=== PATIENT | male | born 1945 | race Caucasian/White ===

== ENCOUNTER 2021-08-31 16:09 | Inpatient (IN) | payer MEDICAID, MEDICARE ==
[~2021-08-31] VITALS: Ht 180.3 cm; Wt 137.0 kg
[2021-08-31 17:49] LABS: BASO % 0.2 % (0.0-1.0); EOS % 0.1 % (0.0-3.0); HEMATOCRIT 43.9 % (42.0-52.0); HEMOGLOBIN 13.9 g/dl (13.5-17.5); LYMPH # 0.6 10^3/uL (1.5-5.0); MEAN CORPUSCULAR HEMOGLOBIN 29.5 pg (27.0-33.0); MEAN CORPUSCULAR HGB CONC 31.7 g/dl (32.0-36.5); MEAN CORPUSCULAR VOLUME 93.2 fl (80.0-96.0); MONO # 0.9 10^3/uL (0.0-0.8); MONO % 10.1 % (2.0-8.0); NEUTROPHILS # 6.9 10^3/uL (1.5-8.5); NEUTROPHILS % 82.2 % (36.0-66.0); PLATELET COUNT, AUTOMATED 249 10^3/uL (150-450); RED BLOOD COUNT 4.71 10^6/uL (4.30-6.10); WHITE BLOOD COUNT 8.4 10^3/uL (4.0-10.0)
[2021-08-31 17:56] LABS: INR 1.27; PARTIAL THROMBOPLASTIN TIME 40.4 SECONDS (25.9-37.0); PROTHROMBIN TIME 16.3 SECONDS (12.7-14.5)
[2021-08-31] MEDS: METOPROLOL 5 MG/5 ML VIAL IV SCH ×3 (18:10→18:20)
[2021-08-31 18:19] LABS: ALBUMIN 3.2 GM/DL (3.2-5.2); ALT/SGPT 36 U/L (12-78); BILIRUBIN,DIRECT 0.8 MG/DL (0.0-0.2); BILIRUBIN,TOTAL 1.6 MG/DL (0.2-1.0); BLOOD UREA NITROGEN 10 MG/DL (7-18); CALCIUM LEVEL 8.5 MG/DL (8.8-10.2); CARBON DIOXIDE LEVEL 29 MEQ/L (21-32); CHLORIDE LEVEL 96 MEQ/L (98-107); CREATININE FOR GFR 0.57 MG/DL (0.70-1.30); GLOMERULAR FILTRATION RATE > 60.0 (>42); GLUCOSE, FASTING 111 MG/DL (70-100); NT-PRO BNP 2627 PG/ML (<125); POTASSIUM SERUM 4.3 MEQ/L (3.5-5.1); SODIUM LEVEL 131 MEQ/L (136-145); TOTAL PROTEIN 6.7 GM/DL (6.4-8.2)
[2021-08-31] MEDS ORDERED: FUROSEMIDE 40MG/4ML VIAL (J1940) IV ONE (18:50)
[2021-08-31] MEDS ORDERED: HOME MED LIST COMPLETE! XX SCH (19:10)
[2021-08-31] MEDS ORDERED: MOM 30ML SUSPENSION UDC PO PRN (19:25)
[2021-08-31] MEDS ORDERED: MAALOX 30 ML SUSP *UDC PO PRN (19:25)
[2021-08-31 19:54] LABS: CHOLESTEROL LEVEL 119 MG/DL (<200); CHOLESTEROL RISK RATIO 3.305 (<5); HDL CHOLESTEROL 36 MG/DL (>40); LDL CHOLESTEROL 70 MG/DL (<100); NON-HDL-C 83 MG/DL; TRIGLYCERIDES LEVEL 66 MG/DL (<150)
[2021-08-31] MEDS ORDERED: FUROSEMIDE 40MG/4ML VIAL (J1940) IV SCH (20:00)
[2021-08-31 20:10] LABS: HEMOGLOBIN A1c 5.2 %
[2021-08-31] MEDS ORDERED: APIXABAN 5 MG TAB (ELIQUIS) PO SCH (21:00)
[2021-08-31 23:00] VITALS: BP 142/90; O2SAT 95
[2021-08-31 23:46] LABS: CK-MB VALUE MASS 6.9 NG/ML (<3.6); MB/CK RELATIVE INDEX 4.06 (< OR =4)
[2021-08-31] MEDS: DOCUSATE SODIUM 100MG CAPSULE PO SCH (23:52)
[2021-09-01] VITALS (24 sets, daily range): BP systolic 114–152; BP diastolic 79–98; O2SAT 89–95
[2021-09-01] MEDS: METOPROLOL TART 25 MG TABLET PO SCH ×5 (00:19→23:46)
[2021-09-01] MEDS: ENOXAPARIN 150MG/ML SYRINGE (J1650 PER 10MG) SC SCH ×3 (00:19→20:17)
[2021-09-01] MEDS: NYSTATIN 100,000 UNITS/GM TOPICAL PWD 15 GM TOP SCH ×3 (00:19→20:17)
[2021-09-01] MEDS ORDERED: FUROSEMIDE 40MG/4ML VIAL (J1940) IV SCH (02:00)
[2021-09-01 04:18] LABS: HEMATOCRIT 42.5 % (42.0-52.0); HEMOGLOBIN 13.3 g/dl (13.5-17.5); MEAN CORPUSCULAR HEMOGLOBIN 29.5 pg (27.0-33.0); MEAN CORPUSCULAR HGB CONC 31.3 g/dl (32.0-36.5); MEAN CORPUSCULAR VOLUME 94.2 fl (80.0-96.0); PLATELET COUNT, AUTOMATED 277 10^3/uL (150-450); RED BLOOD COUNT 4.51 10^6/uL (4.30-6.10); WHITE BLOOD COUNT 8.9 10^3/uL (4.0-10.0)
[2021-09-01 04:47] LABS: CK-MB VALUE MASS 5.3 NG/ML (<3.6); MB/CK RELATIVE INDEX 3.19 (< OR =4)
[2021-09-01 05:03] LABS: BLOOD UREA NITROGEN 10 MG/DL (7-18); CARBON DIOXIDE LEVEL 32 MEQ/L (21-32); CHLORIDE LEVEL 95 MEQ/L (98-107); CREATININE FOR GFR 0.61 MG/DL (0.70-1.30); GLOMERULAR FILTRATION RATE > 60.0 (>42); GLUCOSE, FASTING 110 MG/DL (70-100); POTASSIUM SERUM 3.6 MEQ/L (3.5-5.1); SODIUM LEVEL 134 MEQ/L (136-145)
[2021-09-01 05:04] LABS: ALBUMIN 3.1 GM/DL (3.2-5.2); ALT/SGPT 37 U/L (12-78); BILIRUBIN,TOTAL 1.7 MG/DL (0.2-1.0); CALCIUM LEVEL 8.3 MG/DL (8.8-10.2); TOTAL PROTEIN 6.9 GM/DL (6.4-8.2)
[2021-09-01] MEDS: DOCUSATE SODIUM 100MG CAPSULE PO SCH ×2 (08:08→20:18)
[2021-09-01] MEDS: FUROSEMIDE 40MG/4ML VIAL (J1940) IV SCH ×2 (08:09→20:22)
[2021-09-01 12:01] LABS: CK-MB VALUE MASS 5.9 NG/ML (<3.6); MB/CK RELATIVE INDEX 3.86 (< OR =4)
[2021-09-01 18:27] LABS: BLOOD UREA NITROGEN 12 MG/DL (7-18); CALCIUM LEVEL 8.3 MG/DL (8.8-10.2); CARBON DIOXIDE LEVEL 30 MEQ/L (21-32); CHLORIDE LEVEL 94 MEQ/L (98-107); CREATININE FOR GFR 0.64 MG/DL (0.70-1.30); GLOMERULAR FILTRATION RATE > 60.0 (>42); GLUCOSE, FASTING 115 MG/DL (70-100); POTASSIUM SERUM 3.9 MEQ/L (3.5-5.1); SODIUM LEVEL 131 MEQ/L (136-145)
[2021-09-02] VITALS (15 sets, daily range): BP systolic 109–148; BP diastolic 71–92; O2SAT 91–97
[2021-09-02] MEDS: METOPROLOL TART 25 MG TABLET PO SCH ×4 (05:02→23:15)
[2021-09-02 05:25] LABS: HEMATOCRIT 41.2 % (42.0-52.0); HEMOGLOBIN 13.2 g/dl (13.5-17.5); MEAN CORPUSCULAR HEMOGLOBIN 29.9 pg (27.0-33.0); MEAN CORPUSCULAR VOLUME 93.2 fl (80.0-96.0); PLATELET COUNT, AUTOMATED 240 10^3/uL (150-450); RED BLOOD COUNT 4.42 10^6/uL (4.30-6.10); WHITE BLOOD COUNT 7.2 10^3/uL (4.0-10.0)
[2021-09-02 05:42] LABS: ALBUMIN 2.8 GM/DL (3.2-5.2); ALT/SGPT 34 U/L (12-78); BILIRUBIN,TOTAL 1.5 MG/DL (0.2-1.0); BLOOD UREA NITROGEN 11 MG/DL (7-18); CALCIUM LEVEL 7.6 MG/DL (8.8-10.2); CARBON DIOXIDE LEVEL 31 MEQ/L (21-32); CHLORIDE LEVEL 95 MEQ/L (98-107); CREATININE FOR GFR 0.47 MG/DL (0.70-1.30); GLOMERULAR FILTRATION RATE > 60.0 (>42); GLUCOSE, FASTING 130 MG/DL (70-100); POTASSIUM SERUM 3.2 MEQ/L (3.5-5.1); SODIUM LEVEL 134 MEQ/L (136-145); TOTAL PROTEIN 6.6 GM/DL (6.4-8.2)
[2021-09-02] MEDS ORDERED: POTASSIUM CHLORIDE 10MEQ SR TABLET PO ONE ×2 (06:00→12:00)
[2021-09-02] MEDS: FUROSEMIDE 40MG/4ML VIAL (J1940) IV SCH ×2 (08:11→20:09)
[2021-09-02] MEDS: DOCUSATE SODIUM 100MG CAPSULE PO SCH ×2 (08:11→20:09)
[2021-09-02] MEDS: ENOXAPARIN 150MG/ML SYRINGE (J1650 PER 10MG) SC SCH (08:11)
[2021-09-02] MEDS: NYSTATIN 100,000 UNITS/GM TOPICAL PWD 15 GM TOP SCH ×2 (08:12→20:09)
[2021-09-02] MEDS: APIXABAN 5 MG TAB (ELIQUIS) PO SCH (20:09)
[2021-09-03] VITALS (26 sets, daily range): BP systolic 116–154; BP diastolic 70–93; O2SAT 91–95
[2021-09-03] MEDS: METOPROLOL TART 25 MG TABLET PO SCH ×2 (05:04→20:09)
[2021-09-03 05:11] LABS: HEMATOCRIT 43.3 % (42.0-52.0); HEMOGLOBIN 13.9 g/dl (13.5-17.5); MEAN CORPUSCULAR HEMOGLOBIN 29.5 pg (27.0-33.0); MEAN CORPUSCULAR HGB CONC 32.1 g/dl (32.0-36.5); MEAN CORPUSCULAR VOLUME 91.9 fl (80.0-96.0); PLATELET COUNT, AUTOMATED 264 10^3/uL (150-450); RED BLOOD COUNT 4.71 10^6/uL (4.30-6.10); WHITE BLOOD COUNT 9.8 10^3/uL (4.0-10.0)
[2021-09-03 05:41] LABS: ALT/SGPT 34 U/L (12-78); BILIRUBIN,TOTAL 2.2 MG/DL (0.2-1.0); BLOOD UREA NITROGEN 11 MG/DL (7-18); CARBON DIOXIDE LEVEL 29 MEQ/L (21-32); CHLORIDE LEVEL 94 MEQ/L (98-107); CREATININE FOR GFR 0.48 MG/DL (0.70-1.30); GLOMERULAR FILTRATION RATE > 60.0 (>42); GLUCOSE, FASTING 104 MG/DL (70-100); MAGNESIUM LEVEL 1.5 MG/DL (1.8-2.4); POTASSIUM SERUM 3.8 MEQ/L (3.5-5.1); SODIUM LEVEL 132 MEQ/L (136-145)
[2021-09-03] MEDS ORDERED: MAG SULF 1GM/100ML (MAG RUN) 1 GM in IV 1 EA IV ONE (07:00)
[2021-09-03] MEDS: FUROSEMIDE 40MG/4ML VIAL (J1940) IV SCH ×2 (09:47→20:08)
[2021-09-03] MEDS: ACETAMINOPHEN TAB 650MG DOSE (2X325MG) PO PRN (09:48)
[2021-09-03] MEDS: APIXABAN 5 MG TAB (ELIQUIS) PO SCH ×2 (09:48→20:09)
[2021-09-03] MEDS: DOCUSATE SODIUM 100MG CAPSULE PO SCH ×2 (09:48→20:09)
[2021-09-03] MEDS: POTASSIUM CHLORIDE 10MEQ SR TABLET PO SCH (09:49)
[2021-09-03] MEDS: NYSTATIN 100,000 UNITS/GM TOPICAL PWD 15 GM TOP SCH ×2 (10:55→20:09)
[2021-09-03] MEDS ORDERED: METOPROLOL TART 25 MG TABLET PO ONE (14:00)
[2021-09-04] VITALS (15 sets, daily range): BP systolic 115–138; BP diastolic 63–82; O2SAT 91–98
[2021-09-04 04:54] LABS: HEMATOCRIT 40.9 % (42.0-52.0); MEAN CORPUSCULAR HEMOGLOBIN 29.3 pg (27.0-33.0); MEAN CORPUSCULAR HGB CONC 31.8 g/dl (32.0-36.5); MEAN CORPUSCULAR VOLUME 92.1 fl (80.0-96.0); PLATELET COUNT, AUTOMATED 241 10^3/uL (150-450); RED BLOOD COUNT 4.44 10^6/uL (4.30-6.10); WHITE BLOOD COUNT 9.6 10^3/uL (4.0-10.0)
[2021-09-04 05:14] LABS: ALBUMIN 2.8 GM/DL (3.2-5.2); ALT/SGPT 31 U/L (12-78); BILIRUBIN,TOTAL 2.1 MG/DL (0.2-1.0); BLOOD UREA NITROGEN 13 MG/DL (7-18); CALCIUM LEVEL 7.9 MG/DL (8.8-10.2); CARBON DIOXIDE LEVEL 34 MEQ/L (21-32); CHLORIDE LEVEL 92 MEQ/L (98-107); CREATININE FOR GFR 0.46 MG/DL (0.70-1.30); GLOMERULAR FILTRATION RATE > 60.0 (>42); GLUCOSE, FASTING 104 MG/DL (70-100); MAGNESIUM LEVEL 1.7 MG/DL (1.8-2.4); POTASSIUM SERUM 3.6 MEQ/L (3.5-5.1); SODIUM LEVEL 133 MEQ/L (136-145); TOTAL PROTEIN 6.9 GM/DL (6.4-8.2)
[2021-09-04] MEDS ORDERED: MAG SULF 1GM/100ML (MAG RUN) 1 GM in IV 1 EA IV ONE (08:00)
[2021-09-04] MEDS: NYSTATIN 100,000 UNITS/GM TOPICAL PWD 15 GM TOP SCH ×2 (10:08→20:29)
[2021-09-04] MEDS: APIXABAN 5 MG TAB (ELIQUIS) PO SCH ×2 (10:10→20:30)
[2021-09-04] MEDS: POTASSIUM CHLORIDE 10MEQ SR TABLET PO SCH (10:10)
[2021-09-04] MEDS: METOPROLOL TART 25 MG TABLET PO SCH ×2 (10:11→20:31)
[2021-09-04] MEDS: DOCUSATE SODIUM 100MG CAPSULE PO SCH ×2 (10:11→20:30)
[2021-09-04] MEDS ORDERED: metOLazone 5 MG TAB PO ONE (10:30)
[2021-09-04] MEDS: FUROSEMIDE injection 250 MG in D5W 225 ML IV SCH (11:29)
[2021-09-05] VITALS (7 sets, daily range): BP systolic 101–128; BP diastolic 59–92
[2021-09-05 05:01] LABS: HEMATOCRIT 42.2 % (42.0-52.0); HEMOGLOBIN 13.9 g/dl (13.5-17.5); MEAN CORPUSCULAR HEMOGLOBIN 29.6 pg (27.0-33.0); MEAN CORPUSCULAR HGB CONC 32.9 g/dl (32.0-36.5); PLATELET COUNT, AUTOMATED 248 10^3/uL (150-450); RED BLOOD COUNT 4.69 10^6/uL (4.30-6.10); WHITE BLOOD COUNT 12.6 10^3/uL (4.0-10.0)
[2021-09-05 05:34] LABS: ALBUMIN 2.9 GM/DL (3.2-5.2); ALT/SGPT 30 U/L (12-78); BILIRUBIN,TOTAL 2.1 MG/DL (0.2-1.0); BLOOD UREA NITROGEN 11 MG/DL (7-18); CALCIUM LEVEL 8.1 MG/DL (8.8-10.2); CARBON DIOXIDE LEVEL 38 MEQ/L (21-32); CHLORIDE LEVEL 82 MEQ/L (98-107); CREATININE FOR GFR 0.52 MG/DL (0.70-1.30); GLOMERULAR FILTRATION RATE > 60.0 (>42); GLUCOSE, FASTING 139 MG/DL (70-100); MAGNESIUM LEVEL 1.7 MG/DL (1.8-2.4); POTASSIUM SERUM 3.1 MEQ/L (3.5-5.1); SODIUM LEVEL 130 MEQ/L (136-145); TOTAL PROTEIN 6.8 GM/DL (6.4-8.2)
[2021-09-05] MEDS ORDERED: MAG SULF 1GM/100ML (MAG RUN) 1 GM in IV 1 EA IV ONE (08:00)
[2021-09-05] MEDS: DIGOXIN 0.125 MG TAB PO SCH (09:10)
[2021-09-05] MEDS: ACETAMINOPHEN 500 MG TAB PO SCH ×4 (09:10→19:58)
[2021-09-05] MEDS: APIXABAN 5 MG TAB (ELIQUIS) PO SCH ×2 (09:10→19:58)
[2021-09-05] MEDS: DOCUSATE SODIUM 100MG CAPSULE PO SCH ×2 (09:10→19:58)
[2021-09-05] MEDS: POTASSIUM CHLORIDE 10MEQ SR TABLET PO SCH ×3 (09:11→19:58)
[2021-09-05] MEDS: MIDODRINE 5 MG TAB PO SCH ×3 (09:11→16:00)
[2021-09-05] MEDS: NYSTATIN 100,000 UNITS/GM TOPICAL PWD 15 GM TOP SCH ×2 (09:12→19:59)
[2021-09-05] MEDS: MAGNESIUM OXIDE 400MG TAB (MAG-OX) PO SCH ×2 (09:12→19:57)
[2021-09-05] MEDS: FUROSEMIDE injection 250 MG in D5W 225 ML IV SCH ×2 (11:00→13:17)
[2021-09-06 06:00] VITALS: BP 140/69
[2021-09-06 06:50] LABS: HEMATOCRIT 40.3 % (42.0-52.0); HEMOGLOBIN 13.4 g/dl (13.5-17.5); MEAN CORPUSCULAR HEMOGLOBIN 29.3 pg (27.0-33.0); MEAN CORPUSCULAR HGB CONC 33.3 g/dl (32.0-36.5); MEAN CORPUSCULAR VOLUME 88.2 fl (80.0-96.0); PLATELET COUNT, AUTOMATED 268 10^3/uL (150-450); RED BLOOD COUNT 4.57 10^6/uL (4.30-6.10); WHITE BLOOD COUNT 9.5 10^3/uL (4.0-10.0)
[2021-09-06 07:26] LABS: ALBUMIN 2.6 GM/DL (3.2-5.2); ALT/SGPT 28 U/L (12-78); BILIRUBIN,TOTAL 2.4 MG/DL (0.2-1.0); BLOOD UREA NITROGEN 10 MG/DL (7-18); CALCIUM LEVEL 8.2 MG/DL (8.8-10.2); CARBON DIOXIDE LEVEL 38 MEQ/L (21-32); CHLORIDE LEVEL 81 MEQ/L (98-107); CREATININE FOR GFR 0.44 MG/DL (0.70-1.30); DIGOXIN LEVEL 0.2 NG/ML (0.5-2.0); GLOMERULAR FILTRATION RATE > 60.0 (>42); GLUCOSE, FASTING 106 MG/DL (70-100); MAGNESIUM LEVEL 1.9 MG/DL (1.8-2.4); SODIUM LEVEL 127 MEQ/L (136-145); TOTAL PROTEIN 6.7 GM/DL (6.4-8.2)
[2021-09-06] MEDS: MIDODRINE 5 MG TAB PO SCH ×2 (08:00→12:00)
[2021-09-06] MEDS: ACETAMINOPHEN 500 MG TAB PO SCH ×3 (08:36→20:11)
[2021-09-06] MEDS: MAGNESIUM OXIDE 400MG TAB (MAG-OX) PO SCH ×2 (08:37→20:11)
[2021-09-06] MEDS: APIXABAN 5 MG TAB (ELIQUIS) PO SCH ×2 (08:37→20:10)
[2021-09-06] MEDS: POTASSIUM CHLORIDE 10MEQ SR TABLET PO SCH ×4 (08:37→18:20)
[2021-09-06] MEDS: DOCUSATE SODIUM 100MG CAPSULE PO SCH ×2 (08:37→20:11)
[2021-09-06] MEDS: DIGOXIN 0.125 MG TAB PO SCH (08:43)
[2021-09-06] MEDS: NYSTATIN 100,000 UNITS/GM TOPICAL PWD 15 GM TOP SCH ×2 (08:46→20:11)
[2021-09-06] MEDS ORDERED: MAG SULF 1GM/100ML (MAG RUN) 1 GM in IV 1 EA IV ONE (09:00)
[2021-09-06] MEDS ORDERED: FUROSEMIDE 40MG/4ML VIAL (J1940) IV SCH (10:00)
[2021-09-06] MEDS: KCL 10MEQ/100ML SWI (KRUN) 10 MEQ in IV 1 EA IV SCH ×3 (12:31→18:14)
[2021-09-06 13:16] LABS: BLOOD UREA NITROGEN 11 MG/DL (7-18); CALCIUM LEVEL 8.6 MG/DL (8.8-10.2); CARBON DIOXIDE LEVEL 39 MEQ/L (21-32); CHLORIDE LEVEL 80 MEQ/L (98-107); GLOMERULAR FILTRATION RATE > 60.0 (>42); GLUCOSE, FASTING 126 MG/DL (70-100); MAGNESIUM LEVEL 2.2 MG/DL (1.8-2.4); POTASSIUM SERUM 3.3 MEQ/L (3.5-5.1); SODIUM LEVEL 125 MEQ/L (136-145)
[2021-09-06 14:00] VITALS: BP 138/86
[2021-09-06] MEDS ORDERED: CARVedilol 3.125 MG TAB PO ONE (14:15)
[2021-09-06] MEDS ORDERED: TOLVAPTAN 7.5 MG HALF-TAB PO ONE (16:00)
[2021-09-06 16:03] LABS: BLOOD UREA NITROGEN 12 MG/DL (7-18); CALCIUM LEVEL 8.3 MG/DL (8.8-10.2); CARBON DIOXIDE LEVEL 36 MEQ/L (21-32); CHLORIDE LEVEL 82 MEQ/L (98-107); CREATININE FOR GFR 0.49 MG/DL (0.70-1.30); GLOMERULAR FILTRATION RATE > 60.0 (>42); GLUCOSE, FASTING 162 MG/DL (70-100); MAGNESIUM LEVEL 1.9 MG/DL (1.8-2.4); POTASSIUM SERUM 3.5 MEQ/L (3.5-5.1); SODIUM LEVEL 124 MEQ/L (136-145)
[2021-09-06] MEDS ORDERED: KCL 10MEQ/100ML SWI (KRUN) 10 MEQ in IV 1 EA IV SCH (17:25)
[2021-09-06 18:51] LABS: BLOOD UREA NITROGEN 11 MG/DL (7-18); CALCIUM LEVEL 8.5 MG/DL (8.8-10.2); CARBON DIOXIDE LEVEL 35 MEQ/L (21-32); CHLORIDE LEVEL 82 MEQ/L (98-107); CREATININE FOR GFR 0.45 MG/DL (0.70-1.30); GLOMERULAR FILTRATION RATE > 60.0 (>42); GLUCOSE, FASTING 106 MG/DL (70-100); POTASSIUM SERUM 4.1 MEQ/L (3.5-5.1); SODIUM LEVEL 124 MEQ/L (136-145)
[2021-09-06 20:12] VITALS: BP 126/80
[2021-09-06] MEDS: CARVedilol 3.125 MG TAB PO SCH (20:12)
[2021-09-07 06:07] VITALS: BP 135/83
[2021-09-07 06:41] LABS: HEMATOCRIT 42.5 % (42.0-52.0); HEMOGLOBIN 13.6 g/dl (13.5-17.5); MEAN CORPUSCULAR HEMOGLOBIN 29.1 pg (27.0-33.0); MEAN CORPUSCULAR VOLUME 90.8 fl (80.0-96.0); PLATELET COUNT, AUTOMATED 280 10^3/uL (150-450); RED BLOOD COUNT 4.68 10^6/uL (4.30-6.10); WHITE BLOOD COUNT 9.2 10^3/uL (4.0-10.0)
[2021-09-07 07:11] LABS: ALBUMIN 2.6 GM/DL (3.2-5.2); ALT/SGPT 30 U/L (12-78); BILIRUBIN,TOTAL 2.1 MG/DL (0.2-1.0); BLOOD UREA NITROGEN 11 MG/DL (7-18); CALCIUM LEVEL 8.3 MG/DL (8.8-10.2); CARBON DIOXIDE LEVEL 33 MEQ/L (21-32); CHLORIDE LEVEL 92 MEQ/L (98-107); CREATININE FOR GFR 0.48 MG/DL (0.70-1.30); GLOMERULAR FILTRATION RATE > 60.0 (>42); GLUCOSE, FASTING 99 MG/DL (70-100); MAGNESIUM LEVEL 1.9 MG/DL (1.8-2.4); POTASSIUM SERUM 4.1 MEQ/L (3.5-5.1); SODIUM LEVEL 131 MEQ/L (136-145); TOTAL PROTEIN 6.4 GM/DL (6.4-8.2)
[2021-09-07 07:15] LABS: BLOOD UREA NITROGEN 12 MG/DL (7-18); CALCIUM LEVEL 8.2 MG/DL (8.8-10.2); CARBON DIOXIDE LEVEL 33 MEQ/L (21-32); CHLORIDE LEVEL 93 MEQ/L (98-107); CREATININE FOR GFR 0.44 MG/DL (0.70-1.30); GLOMERULAR FILTRATION RATE > 60.0 (>42); GLUCOSE, FASTING 100 MG/DL (70-100); SODIUM LEVEL 131 MEQ/L (136-145)
[2021-09-07] MEDS: CARVedilol 3.125 MG TAB PO SCH ×2 (08:07→22:03)
[2021-09-07] MEDS: APIXABAN 5 MG TAB (ELIQUIS) PO SCH ×2 (08:07→22:02)
[2021-09-07] MEDS: DOCUSATE SODIUM 100MG CAPSULE PO SCH ×2 (08:07→22:03)
[2021-09-07] MEDS: ACETAMINOPHEN 500 MG TAB PO SCH ×3 (08:07→22:03)
[2021-09-07] MEDS: MAGNESIUM OXIDE 400MG TAB (MAG-OX) PO SCH ×2 (08:07→22:02)
[2021-09-07] MEDS: NYSTATIN 100,000 UNITS/GM TOPICAL PWD 15 GM TOP SCH ×2 (08:08→22:04)
[2021-09-07] MEDS ORDERED: metOLazone 5 MG TAB PO ONE (09:40)
[2021-09-07] MEDS: OLOPATADINE 0.1% OPHTH SOL 5ML(PATANOL) OU SCH ×2 (10:46→17:33)
[2021-09-07] MEDS: POLYVINYL ALCOHOL OPHTH SOLN 15 ML(LIQUITEARS) OU SCH ×4 (10:46→22:04)
[2021-09-07] MEDS: BUMETANIDE 1 MG/4 ML INJ (S0171) IV SCH ×2 (11:37→22:04)
[2021-09-07] MEDS ORDERED: CALCIUM GLUCONATE 1,000 MG in D5W MINI-BAG PLUS 100 ML IV ONE (12:00)
[2021-09-07 14:00] VITALS: BP 124/77
[2021-09-07 14:40] LABS: BLOOD UREA NITROGEN 14 MG/DL (7-18); CALCIUM LEVEL 8.7 MG/DL (8.8-10.2); CARBON DIOXIDE LEVEL 38 MEQ/L (21-32); CHLORIDE LEVEL 89 MEQ/L (98-107); CREATININE FOR GFR 0.56 MG/DL (0.70-1.30); GLOMERULAR FILTRATION RATE > 60.0 (>42); GLUCOSE, FASTING 111 MG/DL (70-100); MAGNESIUM LEVEL 2.2 MG/DL (1.8-2.4); POTASSIUM SERUM 3.3 MEQ/L (3.5-5.1); SODIUM LEVEL 131 MEQ/L (136-145)
[2021-09-07 21:52] LABS: BLOOD UREA NITROGEN 15 MG/DL (7-18); CALCIUM LEVEL 8.3 MG/DL (8.8-10.2); CARBON DIOXIDE LEVEL 35 MEQ/L (21-32); CHLORIDE LEVEL 89 MEQ/L (98-107); CREATININE FOR GFR 0.52 MG/DL (0.70-1.30); GLOMERULAR FILTRATION RATE > 60.0 (>42); GLUCOSE, FASTING 173 MG/DL (70-100); MAGNESIUM LEVEL 1.9 MG/DL (1.8-2.4); POTASSIUM SERUM 3.5 MEQ/L (3.5-5.1); SODIUM LEVEL 132 MEQ/L (136-145)
[2021-09-07 22:00] VITALS: BP 125/76
[2021-09-07 22:03] VITALS: BP 125/76
[2021-09-08 06:00] VITALS: BP 128/74
[2021-09-08] MEDS ORDERED: metOLazone 5 MG TAB PO ONE (08:30)
[2021-09-08] MEDS ORDERED: BUMETANIDE 1 MG TAB PO SCH (09:00)
[2021-09-08] MEDS ORDERED: MAG SULF 1GM/100ML (MAG RUN) 1 GM in IV 1 EA IV ONE ×2 (09:00→11:00)
[2021-09-08] MEDS: MAGNESIUM OXIDE 400MG TAB (MAG-OX) PO SCH ×2 (09:04→20:35)
[2021-09-08] MEDS: ACETAMINOPHEN 500 MG TAB PO SCH ×4 (09:04→20:35)
[2021-09-08] MEDS: APIXABAN 5 MG TAB (ELIQUIS) PO SCH ×2 (09:04→20:35)
[2021-09-08] MEDS: DOCUSATE SODIUM 100MG CAPSULE PO SCH ×2 (09:05→20:35)
[2021-09-08] MEDS: OLOPATADINE 0.1% OPHTH SOL 5ML(PATANOL) OU SCH ×2 (09:05→16:56)
[2021-09-08] MEDS: POLYVINYL ALCOHOL OPHTH SOLN 15 ML(LIQUITEARS) OU SCH ×4 (09:05→20:36)
[2021-09-08] MEDS: NYSTATIN 100,000 UNITS/GM TOPICAL PWD 15 GM TOP SCH ×2 (09:05→20:36)
[2021-09-08 10:08] LABS: BLOOD UREA NITROGEN 16 MG/DL (7-18); CALCIUM LEVEL 8.6 MG/DL (8.8-10.2); CARBON DIOXIDE LEVEL 37 MEQ/L (21-32); CHLORIDE LEVEL 84 MEQ/L (98-107); CREATININE FOR GFR 0.55 MG/DL (0.70-1.30); GLOMERULAR FILTRATION RATE > 60.0 (>42); GLUCOSE, FASTING 146 MG/DL (70-100); MAGNESIUM LEVEL 1.9 MG/DL (1.8-2.4); POTASSIUM SERUM 2.6 MEQ/L (3.5-5.1); SODIUM LEVEL 130 MEQ/L (136-145)
[2021-09-08] MEDS: POTASSIUM CHLORIDE 10MEQ SR TABLET PO SCH ×3 (10:53→15:03)
[2021-09-08 14:00] VITALS: BP 128/92
[2021-09-08 20:38] VITALS: BP 117/76
[2021-09-09 06:04] VITALS: BP 141/77
[2021-09-09 09:02] LABS: BLOOD UREA NITROGEN 20 MG/DL (7-18); CALCIUM LEVEL 8.5 MG/DL (8.8-10.2); CARBON DIOXIDE LEVEL 37 MEQ/L (21-32); CHLORIDE LEVEL 84 MEQ/L (98-107); CREATININE FOR GFR 0.63 MG/DL (0.70-1.30); GLOMERULAR FILTRATION RATE > 60.0 (>42); GLUCOSE, FASTING 145 MG/DL (70-100); MAGNESIUM LEVEL 2.1 MG/DL (1.8-2.4); POTASSIUM SERUM 3.3 MEQ/L (3.5-5.1); SODIUM LEVEL 130 MEQ/L (136-145)
[2021-09-09] MEDS: APIXABAN 5 MG TAB (ELIQUIS) PO SCH ×2 (09:12→20:04)
[2021-09-09] MEDS: MAGNESIUM OXIDE 400MG TAB (MAG-OX) PO SCH ×2 (09:12→20:04)
[2021-09-09] MEDS: ACETAMINOPHEN 500 MG TAB PO SCH ×3 (09:13→20:05)
[2021-09-09] MEDS: NYSTATIN 100,000 UNITS/GM TOPICAL PWD 15 GM TOP SCH ×2 (09:14→20:05)
[2021-09-09] MEDS: POLYVINYL ALCOHOL OPHTH SOLN 15 ML(LIQUITEARS) OU SCH ×4 (09:14→20:05)
[2021-09-09] MEDS: FUROSEMIDE 20 MG TAB PO SCH (09:14)
[2021-09-09] MEDS: SPIRONOLACTONE 25 MG TAB PO SCH (09:14)
[2021-09-09] MEDS: DOCUSATE SODIUM 100MG CAPSULE PO SCH ×2 (09:14→20:04)
[2021-09-09] MEDS: OLOPATADINE 0.1% OPHTH SOL 5ML(PATANOL) OU SCH ×2 (09:14→17:18)
[2021-09-09] MEDS ORDERED: TOLVAPTAN 7.5 MG HALF-TAB PO ONE (10:00)
[2021-09-09 14:00] VITALS: BP 140/77
[2021-09-09] MEDS: OMEPRAZOLE 20MG CAP PO SCH (17:18)
[2021-09-09] MEDS: SUCRALFATE 1 GM TAB PO SCH (17:18)
[2021-09-09 17:57] LABS: HEMATOCRIT 45.7 % (42.0-52.0); HEMOGLOBIN 15.1 g/dl (13.5-17.5)
[2021-09-10 06:00] VITALS: BP 127/80
[2021-09-10 06:58] LABS: BLOOD UREA NITROGEN 20 MG/DL (7-18); CALCIUM LEVEL 8.6 MG/DL (8.8-10.2); CARBON DIOXIDE LEVEL 36 MEQ/L (21-32); CHLORIDE LEVEL 87 MEQ/L (98-107); CREATININE FOR GFR 0.55 MG/DL (0.70-1.30); GLOMERULAR FILTRATION RATE > 60.0 (>42); GLUCOSE, FASTING 97 MG/DL (70-100); MAGNESIUM LEVEL 2.1 MG/DL (1.8-2.4); SODIUM LEVEL 130 MEQ/L (136-145)
[2021-09-10] MEDS: SUCRALFATE 1 GM TAB PO SCH ×3 (07:44→16:46)
[2021-09-10] MEDS: MAGNESIUM OXIDE 400MG TAB (MAG-OX) PO SCH ×2 (07:44→20:58)
[2021-09-10] MEDS: OMEPRAZOLE 20MG CAP PO SCH (07:45)
[2021-09-10] MEDS: POLYVINYL ALCOHOL OPHTH SOLN 15 ML(LIQUITEARS) OU SCH ×4 (07:45→21:00)
[2021-09-10] MEDS: ACETAMINOPHEN 500 MG TAB PO SCH ×3 (07:45→20:59)
[2021-09-10] MEDS: SPIRONOLACTONE 25 MG TAB PO SCH (07:45)
[2021-09-10] MEDS: DOCUSATE SODIUM 100MG CAPSULE PO SCH ×2 (07:45→20:58)
[2021-09-10] MEDS: FUROSEMIDE 20 MG TAB PO SCH (07:45)
[2021-09-10] MEDS: APIXABAN 5 MG TAB (ELIQUIS) PO SCH ×2 (07:45→20:58)
[2021-09-10] MEDS: OLOPATADINE 0.1% OPHTH SOL 5ML(PATANOL) OU SCH ×2 (07:46→16:47)
[2021-09-10] MEDS: NYSTATIN 100,000 UNITS/GM TOPICAL PWD 15 GM TOP SCH ×2 (07:46→20:59)
[2021-09-10] MEDS: POTASSIUM CHLORIDE 10MEQ SR TABLET PO SCH ×2 (20:59→22:22)
[2021-09-11] MEDS: ACETAMINOPHEN TAB 650MG DOSE (2X325MG) PO PRN (02:48)
[2021-09-11 06:00] VITALS: BP 126/79
[2021-09-11 06:28] LABS: BLOOD UREA NITROGEN 18 MG/DL (7-18); CALCIUM LEVEL 8.6 MG/DL (8.8-10.2); CARBON DIOXIDE LEVEL 34 MEQ/L (21-32); CHLORIDE LEVEL 90 MEQ/L (98-107); CREATININE FOR GFR 0.48 MG/DL (0.70-1.30); GLOMERULAR FILTRATION RATE > 60.0 (>42); GLUCOSE, FASTING 100 MG/DL (70-100); MAGNESIUM LEVEL 2.1 MG/DL (1.8-2.4); POTASSIUM SERUM 3.2 MEQ/L (3.5-5.1); SODIUM LEVEL 128 MEQ/L (136-145)
[2021-09-11] MEDS: FUROSEMIDE 20 MG TAB PO SCH (07:46)
[2021-09-11] MEDS: APIXABAN 5 MG TAB (ELIQUIS) PO SCH ×2 (07:47→20:21)
[2021-09-11] MEDS: ACETAMINOPHEN 500 MG TAB PO SCH ×3 (07:47→20:21)
[2021-09-11] MEDS: MAGNESIUM OXIDE 400MG TAB (MAG-OX) PO SCH ×2 (07:47→20:21)
[2021-09-11] MEDS: DOCUSATE SODIUM 100MG CAPSULE PO SCH ×2 (07:47→20:21)
[2021-09-11] MEDS: SUCRALFATE 1 GM TAB PO SCH ×3 (07:47→17:12)
[2021-09-11] MEDS: SPIRONOLACTONE 25 MG TAB PO SCH (07:47)
[2021-09-11] MEDS: OMEPRAZOLE 20MG CAP PO SCH (07:47)
[2021-09-11] MEDS: NYSTATIN 100,000 UNITS/GM TOPICAL PWD 15 GM TOP SCH ×2 (07:50→20:20)
[2021-09-11] MEDS: OLOPATADINE 0.1% OPHTH SOL 5ML(PATANOL) OU SCH ×2 (07:50→17:12)
[2021-09-11] MEDS: POLYVINYL ALCOHOL OPHTH SOLN 15 ML(LIQUITEARS) OU SCH ×4 (07:50→20:21)
[2021-09-12] MEDS: ACETAMINOPHEN TAB 650MG DOSE (2X325MG) PO PRN (01:31)
[2021-09-12 05:55] VITALS: BP 121/87
[2021-09-12 06:58] LABS: BLOOD UREA NITROGEN 18 MG/DL (7-18); CALCIUM LEVEL 8.2 MG/DL (8.8-10.2); CARBON DIOXIDE LEVEL 32 MEQ/L (21-32); CHLORIDE LEVEL 91 MEQ/L (98-107); CREATININE FOR GFR 0.44 MG/DL (0.70-1.30); GLOMERULAR FILTRATION RATE > 60.0 (>42); GLUCOSE, FASTING 102 MG/DL (70-100); SODIUM LEVEL 130 MEQ/L (136-145)
[2021-09-12] MEDS: SUCRALFATE 1 GM TAB PO SCH ×3 (07:48→18:07)
[2021-09-12] MEDS: NYSTATIN 100,000 UNITS/GM TOPICAL PWD 15 GM TOP SCH ×2 (09:21→21:38)
[2021-09-12] MEDS: OLOPATADINE 0.1% OPHTH SOL 5ML(PATANOL) OU SCH ×2 (09:21→17:00)
[2021-09-12] MEDS: OMEPRAZOLE 20MG CAP PO SCH (09:22)
[2021-09-12] MEDS: POLYVINYL ALCOHOL OPHTH SOLN 15 ML(LIQUITEARS) OU SCH ×4 (09:22→21:38)
[2021-09-12] MEDS: DOCUSATE SODIUM 100MG CAPSULE PO SCH ×2 (09:22→21:36)
[2021-09-12] MEDS: SPIRONOLACTONE 25 MG TAB PO SCH (09:22)
[2021-09-12] MEDS: APIXABAN 5 MG TAB (ELIQUIS) PO SCH ×2 (09:23→21:36)
[2021-09-12] MEDS: ACETAMINOPHEN 500 MG TAB PO SCH ×3 (09:23→21:37)
[2021-09-12] MEDS: MAGNESIUM OXIDE 400MG TAB (MAG-OX) PO SCH ×2 (09:23→21:37)
[2021-09-12] MEDS ORDERED: POTASSIUM CHLORIDE 10MEQ SR TABLET PO ONE ×2 (10:00→13:00)
[2021-09-12] MEDS: FUROSEMIDE 20 MG TAB PO SCH (10:36)
[2021-09-12 10:38] VITALS: BP 126/85
[2021-09-13 06:00] VITALS: BP 110/76
[2021-09-13 07:27] LABS: BLOOD UREA NITROGEN 12 MG/DL (7-18); CALCIUM LEVEL 8.4 MG/DL (8.8-10.2); CARBON DIOXIDE LEVEL 28 MEQ/L (21-32); CHLORIDE LEVEL 94 MEQ/L (98-107); CREATININE FOR GFR 0.42 MG/DL (0.70-1.30); GLOMERULAR FILTRATION RATE > 60.0 (>42); GLUCOSE, FASTING 91 MG/DL (70-100); POTASSIUM SERUM 3.4 MEQ/L (3.5-5.1); SODIUM LEVEL 130 MEQ/L (136-145)
[2021-09-13] MEDS ORDERED: K-TA10TA2 PO (08:05)
[2021-09-13] MEDS ORDERED: ALDA25TA2 PO (08:05)
[2021-09-13] MEDS ORDERED: OMEP-173 PO (08:05)
[2021-09-13] MEDS ORDERED: ELIQ5TAB PO (08:05)
[2021-09-13] MEDS ORDERED: ACET-683 PO (08:05)
[2021-09-13] MEDS ORDERED: COLA100C5 PO (08:05)
[2021-09-13] MEDS: SUCRALFATE 1 GM TAB PO SCH ×2 (08:05→12:36)
[2021-09-13] MEDS ORDERED: FURO20TA2 PO (08:05)
[2021-09-13] MEDS ORDERED: MAGN400T2 PO (08:05)
[2021-09-13] MEDS ORDERED: NYST10006 TOP (08:05)
[2021-09-13] MEDS ORDERED: POTASSIUM CHLORIDE 10MEQ SR TABLET PO ONE (08:15)
[2021-09-13] MEDS: SPIRONOLACTONE 25 MG TAB PO SCH (08:52)
[2021-09-13] MEDS: APIXABAN 5 MG TAB (ELIQUIS) PO SCH (08:53)
[2021-09-13] MEDS: FUROSEMIDE 20 MG TAB PO SCH (08:53)
[2021-09-13] MEDS: MAGNESIUM OXIDE 400MG TAB (MAG-OX) PO SCH (08:53)
[2021-09-13] MEDS: OMEPRAZOLE 20MG CAP PO SCH (08:53)
[2021-09-13] MEDS: DOCUSATE SODIUM 100MG CAPSULE PO SCH (08:53)
[2021-09-13] MEDS: POLYVINYL ALCOHOL OPHTH SOLN 15 ML(LIQUITEARS) OU SCH ×2 (08:54→12:30)
[2021-09-13] MEDS: OLOPATADINE 0.1% OPHTH SOL 5ML(PATANOL) OU SCH (08:54)
[2021-09-13] MEDS: ACETAMINOPHEN 500 MG TAB PO SCH (08:55)
[2021-09-13] MEDS: NYSTATIN 100,000 UNITS/GM TOPICAL PWD 15 GM TOP SCH (08:55)
[2021-09-13] MEDS ORDERED: POTASSIUM CHLORIDE 10MEQ SR TABLET PO SCH (09:00)
== END 2021-09-13 15:45 | DRG 308 ==
LOC: EDBD 16:09 → M ED 16:09 → M ED INP 19:32 → M PCU 22:58 → M MSPAV 09-05 13:22
PROVIDERS: ADMIT Family Medicine; ATTEND Internal Medicine Nephrology
DX: I48.0 Paroxysmal atrial fibrillation (principal); I50.43 Acute on chronic combined systolic (congestive) and diastolic (congestive) heart failure; Z68.43 Body mass index [BMI] 50.0-59.9, adult; E87.1 Hypo-osmolality and hyponatremia; K80.10 Calculus of gallbladder with chronic cholecystitis without obstruction; I34.0 Nonrheumatic mitral (valve) insufficiency; I27.20 Pulmonary hypertension, unspecified; E66.01 Morbid (severe) obesity due to excess calories; G47.33 Obstructive sleep apnea (adult) (pediatric); E87.6 Hypokalemia; E83.42 Hypomagnesemia; K21.9 Gastro-esophageal reflux disease without esophagitis; M17.0 Bilateral primary osteoarthritis of knee; H40.9 Unspecified glaucoma; N43.3 Hydrocele, unspecified; Z91.19 Patient's noncompliance with other medical treatment and regimen